=== PATIENT | male | born 1965 | race Caucasian/White ===

== ENCOUNTER 2018-12-27 09:25 | Inpatient (IN) ==
[~2018-12-27] VITALS: Ht 175.3 cm; Wt 72.6 kg
--- NOTE | 2018-12-27 09:37 | NUR ---
called [facility] [phone]
[2018-12-27 10:09] LABS: BASOPHILS # (AUTO) 0.1 /CMM (0.0-0.2); BASOPHILS % (AUTO) 0.8 % (0.0-2.0); EOSINOPHILS % (AUTO) 0.7 % (0.0-6.0); HEMATOCRIT 31 % (39-51); HEMOGLOBIN 10.9 g/dL (13.5-17.5); LYMPHOCYTES # (AUTO) 0.5 /CMM (0.8-4.8); LYMPHOCYTES % (AUTO) 8.5 % (20.0-44.0); MEAN CORPUSCULAR HGB CONC 35 g/dl (31.0-36.0); MEAN CORPUSCULAR VOLUME 90 fL (80-96); MONOCYTES # (AUTO) 0.2 /CMM (0.1-1.30); MONOCYTES % (AUTO) 2.5 % (2.0-12.0); NEUTROPHILS # (AUTO) 5.5 /CMM (1.8-8.9); NEUTROPHILS % (AUTO) 87.5 % (43.0-81.0); PLATELET COUNT (AUTO) 137 /CMM (150-450); RED BLOOD CELL COUNT(AUTO) 3.46 MIL/uL (4.5-6.0); WHITE BLOOD COUNT (AUTO) 6.2 K/uL (4.3-11.0)
[2018-12-27] MEDS ORDERED: TERA2CAP4 PO (10:09)
[2018-12-27] MEDS ORDERED: NATE120T6 PO (10:09)
[2018-12-27] MEDS ORDERED: PATI16.8 PO (10:09)
[2018-12-27] MEDS ORDERED: DILT180C87 PO (10:09)
[2018-12-27] MEDS ORDERED: OLME40TA18 PO (10:09)
[2018-12-27] MEDS ORDERED: INSU100V7 SQ (10:09)
[2018-12-27] MEDS ORDERED: INSU100I14 SQ (10:09)
[2018-12-27] MEDS ORDERED: LEVO112T2 PO (10:09)
--- NOTE | 2018-12-27 10:12 | NUR ---
PER MD ORDER PT REC'D TO ER C/O CP LEFT UPPER SHOULDER VSS IV STARTED RT FA 20G LABS SENT TO LAB IV NS FLUIDS GIVEN .
[2018-12-27] MEDS ORDERED: ASPIRIN 325 MG TABLET ONE (10:18)
[2018-12-27] MEDS ORDERED: MORPHINE SULFATE INJ 2 MG/ML DISP.SYRIN ONE (10:18)
[2018-12-27 10:19] LABS: CALCIUM, SERUM 9.1 mg/dL (8.5-10.1); CREATININE 3.3 mg/dL (0.6-1.3); POTASSIUM 5.5 mmol/L (3.5-5.1)
[2018-12-27] MEDS ORDERED: MORPHINE SULFATE INJ 2 MG/ML DISP.SYRIN IV ONE (10:30)
[2018-12-27] MEDS ORDERED: ASPIRIN 325 MG TABLET PO ONE (10:30)
[2018-12-27] MEDS ORDERED: IV NS 0.9% 1,000 ML BAG IV ONE (10:30)
[2018-12-27] MEDS ORDERED: NITROGLYCERIN PACKET 1 GM PACKET ONE (10:36)
--- NOTE | 2018-12-27 10:43 | NUR ---
NITRO GIVEN PER MD
--- NOTE | 2018-12-27 10:48 | NUR ---
kacey called, stu bennett.
[2018-12-27] MEDS ORDERED: NITROGLYCERIN PACKET 1 GM PACKET TD ONE (11:00)
--- NOTE | 2018-12-27 12:04 | NUR ---
PT RESTING NO C/O PAIN AT THIS TIME PENDING ADMIT
[2018-12-27] MEDS ORDERED: ONDANSETRON HCL/PF 4 MG/2 ML VIAL ONE (12:09)
[2018-12-27] MEDS ORDERED: ONDANSETRON HCL/PF 4 MG/2 ML VIAL IV ONE (12:30)
--- NOTE | 2018-12-27 12:57 | NUR ---
Note angelina in EDM - 12/27/18 at 1259 by ELSA ELI RAMIRES AT 1400 GOING TO [facility]. TRIP# [id number]. PRIMARY RN AWARE.
[2018-12-27 13:00] VITALS: BP 135/66
[2018-12-27] MEDS ORDERED: Z GUARD REMEDY 2 OZ OINT TP PRN (13:00)
[2018-12-27] MEDS ORDERED: ACETAMINOPHEN 325 MG TABLET PO PRN (13:00)
[2018-12-27] MEDS ORDERED: HYDROCODONE/APAP 5/325MG 1 EACH TABLET PO PRN (13:00)
[2018-12-27] MEDS ORDERED: MAGNESIUM HYDROXIDE 30 ML UDC PO PRN (13:00)
[2018-12-27] MEDS ORDERED: ZOLPIDEM TARTRATE 5 MG TABLET PO PRN (13:00)
[2018-12-27] MEDS ORDERED: MAG HYDROX/AL HYDROX/SIMETH 30 ML UDC PO PRN (13:00)
[2018-12-27] MEDS ORDERED: DEXTROSE 50%-WATER 50 ML DISP.SYRIN IV PRN (13:00)
[2018-12-27] MEDS ORDERED: MORPHINE SULFATE INJ 2 MG/ML DISP.SYRIN IV PRN (13:00)
[2018-12-27] MEDS: NITROGLYCERIN PACKET 1 GM PACKET TOP SCH (13:00)
[2018-12-27] MEDS ORDERED: ONDANSETRON HCL/PF 4 MG/2 ML VIAL IVP PRN (13:00)
--- NOTE | 2018-12-27 13:25 | NUR ---
REPORT GIVEN TO CHRISTINE HAYNES PT AWAITING TRANSFER TO FLOOR.
[2018-12-27] MEDS ORDERED: LOSARTAN POTASSIUM 50 MG TABLET PO SCH (13:30)
--- NOTE | 2018-12-27 13:45 | NUR ---
FITTING ROOM SUPERVISORPLATE DRYING MACHINE TENDER NOTES RECEIVED PATIENT ON FLOOR AT 316 BED 1 ADMITTED FOR CHEST PAIN NON-STEMI. A/O X4 AND ABLE TO MAKE NEEDS KNOWN, RESPONSIVE TO ALL STIMULI. RESPIRATION EVEN AND NON LABORED WITH NO ACUTE RESPIRATORY DISTRESS, CLEAR LUNGS UPON AUSCULTATION BILATERALLY. ABDOMEN SOFT AND NON DISTENDED WITH ACTIVE BOWEL SOUNDS. SKIN WARM TO TOUCH AND DRY, SCAB AND REDNESS SEEN AT BOTH ARMS DUE TO PATIENT PLUMBING WORK AT HOME, KEPT AREA CLEAN AND DRY. PATIENT DENIES PAIN AND DISCOMFORT. IV SITE AT RIGHT FOREARM WITH PATENT IN FLUSHING, NO S/SX OF INFILTRATION. PER TELE MONITOR SHOWS SINUS RHYTHM. ALL CONCERNS ADDRESSED. PLACED CALL LIGHT WITHIN REACH FOR SAFETY.
--- NOTE | 2018-12-27 13:48 | NUR ---
TRANSFER TO FLOOR STABLE REPORT GIVEN TO RN
--- NOTE | 2018-12-27 13:50 | NUR ---
RUG SIZER NOTES VERIFIED DUE MEDICATION WITH ACCOMPANIED RN FROM ER (VO) IF IT WAS GIVEN TO ER, STATED GIVEN ALREADY.
[2018-12-27 16:00] VITALS: BP 127/72
[2018-12-27] MEDS ORDERED: HEPARIN INFUSION/D5W 500 ML IV PRN (16:00)
[2018-12-27 16:05] LABS: IRON, SERUM 74 ug/dl (50-175); TOTAL IRON BINDING CAPACITY 280 ug/dl (250-450)
--- NOTE | 2018-12-27 17:00 | NUR ---
CRM MARKETING EXECUTIVE NOTES GAVE HEPARIN DRIP CALCULATION TO PHARMACY. WAITING FOR REVIEW. CONFIRMED RECEIVED BY JASIEL
[2018-12-27] MEDS: BLOOD SUGAR DIAGNOSTIC 1 EACH STRIP IN SCH ×2 (17:09→21:24)
--- NOTE | 2018-12-27 17:14 | NUR ---
GEOTHERMAL HEAT PUMP MACHINIST NOTES PT INR RESULT STILL PENDING. FF UP WITH LAB.
--- NOTE | 2018-12-27 17:16 | NUR ---
ECONOMICS ANALYST NOTES VERIFIED WITH [facility] REGARDING HEPARIN INFUSION DRIP. STATED OKAY TO GO FOR 1095 U/HR OR 1100 U/HR.
[2018-12-27] MEDS: INSULIN REGULAR, HUMAN 100 UNIT/ML 3 ML VIAL SQ PRN ×2 (17:27→21:47)
[2018-12-27] MEDS: ISOSORBIDE DINITRATE (20MG) 20 MG TABLET PO SCH (17:28)
[2018-12-27] MEDS: hydrALAZINE HCL 50 MG TABLET PO SCH (17:29)
[2018-12-27] MEDS ORDERED: HEPARIN SODIUM, PORCINE 5000 UNITS/1 ML VIAL IV ONE (17:30)
--- NOTE | 2018-12-27 17:35 | NUR ---
not able to start Heparin due to pending stat PTT level.
--- NOTE | 2018-12-27 17:37 | NUR ---
ELECTRO MECHANICAL DESIGNER NOTES FF UP PT INR RESULT WITH LABS
[2018-12-27] MEDS ORDERED: TERAZOSIN HCL 1 MG CAPSULE PO SCH (18:00)
[2018-12-27] MEDS ORDERED: METOPROLOL TARTRATE 50 MG TABLET PO SCH (18:00)
--- NOTE | 2018-12-27 18:02 | NUR ---
DELIVERY DIRECTOR NOTES PATIENT EDUCATION GIVEN DUE TO HEPARIN DRIP. FOR ANY CHEST PAIN, SHORTNESS OF BREATH, DIZZINESS, FATIGUE. CALL NURSE SOON POSSIBLE. DO NOT GET UP FROM BED WITHOUT ASSISTANCE FOR FALL RISK. PATIENT VERBALIZED UNDERSTANDING. PLACED CALL LIGHT WITHIN REACH. WILL CONTINUE TO MONITOR CARE
[2018-12-27 18:04] LABS: CHOLESTEROL 151 mg/dL (<200); FERRITIN 154 ng/mL (8-388); HDL CHOLESTEROL 55 mg/dL (40-60); LDL 93 mg/dL (0-99); TRIGLYCERIDES 32 mg/dL (30-150)
--- NOTE | 2018-12-27 18:36 | NUR ---
LEARNING AND DEVELOPMENT SPECIALIST NOTES PAGED DR. CAMACHO FOR TROPONIN LEVEL OF 22.313, WITH ORDER TO CONTINUE HEPARIN DRIP. INFORMED THAT HEPARIN DRIP STARTED, SR 92 PER TELE MONITOR, NO CHEST PAIN NOR SHORTNESS OF BREATH ASSESSED. WILL CONTINUE TO MONITOR
--- NOTE | 2018-12-27 19:08 | NUR ---
INDUSTRIAL WASTE INSPECTOR CLOSING NOTES PATIENT A/O X4 AND ABLE TO MAKE NEEDS KNOWN, RESPONSIVE TO ALL STIMULI. RESPIRATION EVEN AND NON LABORED WITH NO ACUTE RESPIRATORY DISTRESS. ABDOMEN SOFT AND NON DISTENDED WITH ACTIVE BOWEL SOUNDS, CONTINENT BOWEL AND BLADDER WITH BRP. SKIN WARM TO TOUCH AND DRY. PATIENT DENIES PAIN AND DISCOMFORT. IV SITE AT RIGHT FOREARM WITH PATENT IN FLUSHING, NO S/SX OF INFILTRATION. PER TELE MONITOR SHOWS SINUS RHYTHM AT 92. ON HEPARIN DRIP AT 1095 U/HR. ALL CONCERNS ADDRESSED. PLACED CALL LIGHT WITHIN REACH FOR SAFETY. ENSURE TO CALL NURSE FOR ANY CHEST PAIN, SOB, FATIGUE, DIZZINESS, OR ASSISTANCE TO GO TO BATHROOM DUE TO RISK FOR FALL AND VERBALIZED UNDERSTANDING. ENDORSED PATIENT TO NEXT SHIFT.
[2018-12-27] MEDS: NATEGLINIDE 60 MG TABLET PO SCH (19:54)
[2018-12-27] MEDS: DILTIAZEM HCL CD 180 MG PO SCH (19:56)
[2018-12-27 20:00] VITALS: BP 104/51
--- NOTE | 2018-12-27 20:07 | NUR ---
COMMUNITY SERVICE SPECIALIST NOTES MEDICATION CARDIZEM AND STARLIX FOUNDED OUT NOT GIVEN AT ER, VERIFIED WITH GLENNA, GAVE ORDERED.
[2018-12-27] MEDS ORDERED: INSULIN GLARGINE, 100 UNIT/ML CARTRIDGE SQ SCH (22:00)
[2018-12-27] MEDS ORDERED: ATORVASTATIN 10 MG TABLET PO SCH (22:00)
--- NOTE | 2018-12-27 22:48 | NUR ---
AIRLINE STEWARDESS NOTES PT'S TROP 45.66. NOTIFIED DR. MEJIA. WITH NEW ORDERS TO TRANSFER TO ICU FOR CLOSE MONITORING. WILL CONTINUE TO MONITOR.
--- NOTE | 2018-12-27 23:00 | NUR ---
AIRLINE SECURITY REPRESENTATIVE NOTES PAGED DR. PATRICIO PER DR. MEJIA. AWAITING FOR RESPONSE.
--- NOTE | 2018-12-27 23:15 | NUR ---
TECHNICAL PROJECT LEAD NOTES PT TRANSFERRED TO ICU ROOM 255. REPORT GIVEN TO ED RN FOR CONTINUITY OF CARE.
[2018-12-27 23:26] VITALS: BP 105/58
[2018-12-27 23:30] VITALS: BP 102/61
[2018-12-28] VITALS (13 sets, daily range): BP systolic 99–129; BP diastolic 50–72
[2018-12-28] MEDS: NITROGLYCERIN PACKET 1 GM PACKET TOP SCH ×2 (01:00→13:00)
--- NOTE | 2018-12-28 03:35 | NUR ---
WARDROBE TECHNICIAN PT WAS TRANSFERRED FROM [address] [address] TO ICU WITH DIAGNOSIS NSTEMI FOR CLOSER MONITORING D/T TROPONIN LEVEL ELEVATED FROM 22.3 TO 45.66. PT IS AWAKE, ALERT, ORIENTED. PT DENIES ANY PAIN, SOB OR ANY OTHER DISCOMFORT. VSS, AFEBRILE, SCOPE-SR. SLEPT WELL. URINE OUTPUT IS ADEQUATE. PT IS ON HEPARIN DRIP AT RATE 1095 UNITS/HOUR. PTT REPEATED AT MIDNIGHT. PTT IS 47.6. NO CHANGE IN HEPARIN DRIP RATE ACCORDING PROTOCOL. STAT EKG ALSO WAS DONE -SR. FredericR SOLIS PATRICIO WAS CALLED & UPDATED REGARDING PT'S CONDITION & , EKG & LAB RESULTS. THERE IS A PLAN TO TRANSFER PT TO [facility] FOR CARDIAC CATHETERIZATION IN A.M.
[2018-12-28 04:37] LABS: BASOPHILS % (AUTO) 0.7 % (0.0-2.0); EOSINOPHILS % (AUTO) 0.4 % (0.0-6.0); HEMATOCRIT 27 % (39-51); HEMOGLOBIN 9.1 g/dL (13.5-17.5); LYMPHOCYTES # (AUTO) 0.7 /CMM (0.8-4.8); LYMPHOCYTES % (AUTO) 10.7 % (20.0-44.0); MEAN CORPUSCULAR HGB CONC 35 g/dl (31.0-36.0); MEAN CORPUSCULAR VOLUME 89 fL (80-96); MONOCYTES # (AUTO) 0.4 /CMM (0.1-1.30); MONOCYTES % (AUTO) 5.5 % (2.0-12.0); NEUTROPHILS # (AUTO) 5.4 /CMM (1.8-8.9); NEUTROPHILS % (AUTO) 82.7 % (43.0-81.0); PLATELET COUNT (AUTO) 121 /CMM (150-450); RED BLOOD CELL COUNT(AUTO) 2.96 MIL/uL (4.5-6.0); WHITE BLOOD COUNT (AUTO) 6.5 K/uL (4.3-11.0)
[2018-12-28 04:49] LABS: ALBUMIN 2.8 g/dL (3.4-5.0); BILIRUBIN,TOTAL 0.2 mg/dL (0.2-1.0); CALCIUM, SERUM 8.6 mg/dL (8.5-10.1); CREATININE 3.5 mg/dL (0.6-1.3); MAGNESIUM 2.4 mg/dL (1.8-2.4); PHOSPHORUS 5.9 mg/dL (2.5-4.9); POTASSIUM 5.6 mmol/L (3.5-5.1); TOTAL PROTEIN, SERUM 5.3 g/dL (6.4-8.2)
[2018-12-28 04:56] LABS: THYROID STIMULATING HORMONE 1.391 uIU/mL (0.358-3.74)
--- NOTE | 2018-12-28 06:38 | NUR ---
BUSINESS DEVELOPMENT ASSISTANT PT IS COMPLIANT & COOPERATIVE. COMFORTABLE, NO CHEST PAIN OR SOB. VSS, SCOPE-SR. REMAINS ON HEPARIN DRIP AT 1095 UNITS/HR. TROPONIN LEVEL @ 6 A.M. WENT UP FROM 45.6 TO 77.585. ANOTHER STAT EKG DONE & MESSAGE SENT TO Edson PATRICIO. WAITING FOR RESPONSE.
--- NOTE | 2018-12-28 06:55 | NUR ---
SUPERVISOR DEHYDROGENATION PER D-R CAMACHO ELEVATED TROPONIN MAY BE DUE TO REPERFUSION & PT CAN BE DOWNGRADED TO TELE STATUS
--- NOTE | 2018-12-28 07:15 | NUR ---
RECEIVED REPORT ON PATIENT. A/OX4 DENIES PAIN, SOB, DIFFICULTY BREATHING. IV SITE C/D/I/P. TOLERATING LOW FLOW 02 NC WITHOUT COMPLICATIONS. HEP GTT RUNNING PER PROTOCOL NO S/S BLEEDING. WILL MONITOR. SAFETY, SKIN, ASPIRATION PRECAUTIONS IN PLACE AND WILL MONITOR
[2018-12-28] MEDS ORDERED: LEVOTHYROXINE SODIUM 112 MCG TABLET PO SCH (07:30)
[2018-12-28] MEDS: BLOOD SUGAR DIAGNOSTIC 1 EACH STRIP IN SCH ×2 (08:22→12:38)
[2018-12-28] MEDS: hydrALAZINE HCL 50 MG TABLET PO SCH ×2 (08:22→13:00)
--- NOTE | 2018-12-28 08:47 | NUR ---
DR CAMACHO AWARE OF PATIENT UPDATED TROPONIN THIS MORNING OF 82.529. OK TO CONTINUE TO TELE. DIANA SUP NOTIFIED.
[2018-12-28] MEDS: ISOSORBIDE DINITRATE (20MG) 20 MG TABLET PO SCH (09:00)
[2018-12-28] MEDS ORDERED: ASPIRIN EC 81 MG TABLET.DR PO SCH (09:00)
[2018-12-28] MEDS: DILTIAZEM HCL CD 180 MG PO SCH (09:00)
--- NOTE | 2018-12-28 09:57 | NUR ---
CALLED PHARMACY AND THEY WILL DELIVER STARLIX FOR PATIENT. DR TA AT BEDSIDE
[2018-12-28] MEDS ORDERED: SODIUM POLYSTYRENE SULF. PWD 15 GM UDC PO ONE (10:00)
[2018-12-28] MEDS ORDERED: Calcium Gluconate 0.465 MEQ/ML VIAL IV ONE (10:00)
--- NOTE | 2018-12-28 10:10 | NUR ---
REPORT GIVEN TO LORI HAYNES FOR [facility].
[2018-12-28] MEDS ORDERED: Calcium Gluconate 1GM/10ML 4.65 MEQ in IV D5W 50 ML IV ONE (10:30)
[2018-12-28] MEDS ORDERED: IV NS 0.9% 1,000 ML IV PRN (10:32)
--- NOTE | 2018-12-28 10:55 | NUR ---
PATIENT TRANSFERRED TO [facility] BED 316-1 FOR VALERIA. CARE ENDORSED TO [facility] FOR [facility]. PATIENT STABLE.
[2018-12-28] MEDS ORDERED: FUROSEMIDE 40 MG/4 ML VIAL IV ONE (11:00)
--- NOTE | 2018-12-28 11:10 | NUR ---
TELE/RN NOTE THE PATIENT ALERT AND ORIENTED X4. IN ROOM AIR. DENIES SOB. RESPIRATION REGULAR AND UNLABORED. DENIES PAIN. THE PATIENT IN NO APPARENT DISTRESS. RFA G 20 PATENT AND HEPARIN INUFUSING AT 1095 U/H. THE PATIENT DENIES ANY DISCOMFORT. ORIENTATION OF THE ROOM/UNIT IS GIVEN AND THE PATIENT VERBALIZED UNDERSTANDING. BED LOW AND LOCKED. SIDE RAILS UP X3. CALL LIGHT WITHIN REACH. WILL CONTINUE TO MONITOR.
[2018-12-28] MEDS: NATEGLINIDE 60 MG TABLET PO SCH (13:07)
--- NOTE | 2018-12-28 15:57 | NUR ---
MS/RN NOTE DR TA IS MADE AWARE OF TROPONIN LEVEL OF 93.108 AND BROUGHT TO HIS ATTENTION TREND OF GOING UP. THE PATIENT ASYMPTOMATIC. DENIES CHEST PAIN. RESPIRATION REGULAR AND UNLABORED. DENIES SOB. SATURATION IN ROOM AIR AT 97%. ASKED MD TO UPGRADE THE PATIENT TO [place] AND ICU FOR CLOSER MONITORING BUT THE MD REFUSED. NO NEW ORDER PER ORDER. WILL CONTINUE TO MONITOR.
--- NOTE | 2018-12-28 16:15 | NUR ---
TELE/RN NOTE THE PATIENT ALERT AND ORIENTED X4. OXYGEN SATURATION IN ROOM AIR AT 98%. DENIES SOB. DENIES PAIN. THE PATIENT IS IN NO APPARENT DISTRESS. THE PATIENT DENIES CHEST PAIN OR ANY DISCOMFORT. THE PATIENT REQUESTED TO LEAVE THE HOSPITAL DESPITE NO DISCHARGE ORDER. THE PATIENT LEFT THE HOSPITAL AMA WITH SISTER RUFINA. PRIOR LEAVING THE HOSPITAL THE PATIENT WAS PROVIDED WITH HIS MEDICATION RECORD. THE PATIENT LEFT THE HOSPITAL IN STABLE CONDITION.
[2018-12-28 17:15] LABS: APPEARANCE,URINE CLEAR (CLEAR); BILIRUBIN,URINE NEGATIVE (NEGATIVE); BLOOD, URINE NEGATIVE Ery/uL (NEGATIVE); COLOR,URINE YELLOW (YELLOW); KETONES,URINE NEGATIVE (NEGATIVE); LEUKOCYTE ESTERASE ,URINE NEGATIVE (NEGATIVE); NITRITE, URINE NEGATIVE (NEGATIVE); PH,URINE 5.5 (5.0-8.0); PROTEIN,URINE NEGATIVE (NEGATIVE); UGLUCOSE NEGATIVE (NEGATIVE); UROBILINOGEN,URINE 0.2 EU/dL (0.2)
== END 2018-12-28 16:25 | disposition left against medical advice (07) | DRG 280 ==
LOC: ER 09:28 → TELE 12:40 → ICU 23:07 → TELE 12-28 11:03
PROVIDERS: ADMIT Hospitalist; ATTEND Family Medicine
DX: I21.4 Non-ST elevation (NSTEMI) myocardial infarction (principal); N17.0 Acute kidney failure with tubular necrosis; N18.4 Chronic kidney disease, stage 4 (severe); E11.22 Type 2 diabetes mellitus with diabetic chronic kidney disease; E87.5 Hyperkalemia; E03.9 Hypothyroidism, unspecified; I12.9 Hypertensive chronic kidney disease with stage 1 through stage 4 chronic kidney disease, or unspecified chronic kidney disease; E11.65 Type 2 diabetes mellitus with hyperglycemia; I48.91 Unspecified atrial fibrillation; D63.8 Anemia in other chronic diseases classified elsewhere
CPT/HCPCS: 36415; 71045-TC; 75574; 80048-TC; 80053-TC; 80061-TC; 81000-TC; 82728-TC; 82962-TC; 83540-TC; 83735-TC; 83880; 84100-TC; 84443-TC; 84484-TC; 85025-TC; 85610-TC; 85730-TC; 87081-TC; 93307-TC; G0378; J0610; J1644; J1815; J1940; J2270; J2405; J7030; J7060; J7070